=== PATIENT | male | born 1940 | race Caucasian/White ===

== ENCOUNTER → 2019-11-15 | Outpatient (CLI) | payer MEDICARE, OTHER ==
[~2019-11-15] MED LIST: AMLO5 PO; Hydrochloroth12.5 MG PO; INSDET100; METF850 PO; PERI4 PO; POTCHL10ER PO; SIMV40 PO
== END | disposition home or self-care (01) ==
LOC: PLD 07:44 → LAB SHORT 07:44
DX: C44.612 Basal cell carcinoma of skin of right upper limb, including shoulder (principal); C44.611 Basal cell carcinoma of skin of unspecified upper limb, including shoulder; C44.519 Basal cell carcinoma of skin of other part of trunk
CPT/HCPCS: 88305

== ENCOUNTER → 2019-12-08 | Outpatient (CLI) | payer MEDICARE, OTHER | END | disposition home or self-care (01) | LOC: PLD 08:23 → LAB SHORT 08:23 | DX: C44.519 Basal cell carcinoma of skin of other part of trunk (principal) | CPT/HCPCS: 88305 ==

== ENCOUNTER → 2021-06-06 | Outpatient (CLI) | payer MEDICARE, OTHER ==
[~2021-06-06] MED LIST changes: +Lantus100 UNIT/1 SC
== END ==
LOC: LAB SHORT 14:51 → LAB 14:51
DX: D48.5 Neoplasm of uncertain behavior of skin (principal); C44.519 Basal cell carcinoma of skin of other part of trunk
CPT/HCPCS: 88305

== ENCOUNTER → 2021-07-12 | Outpatient (CLI) | payer MEDICARE, OTHER | LOC: LAB 11:27 → LAB SHORT 11:27 | DX: C44.519 Basal cell carcinoma of skin of other part of trunk (principal) | CPT/HCPCS: 88305 ==

== ENCOUNTER → 2021-11-26 | Outpatient (CLI) | payer MEDICARE, BC ==
[2021-11-27 20:36] LABS: Adenovirus F 40/41 Not Detected (NOT DETECT); Astrovirus Not Detected (NOT DETECT); Campylobacter Sp Not Detected (NOT DETECT); Cryptosporidium Not Detected (NOT DETECT); Cyclospora Cayetanensis Not Detected (NOT DETECT); E. Coli O157 Not Detected (NOT DETECT); Entamoeba Histolytica Not Detected (NOT DETECT); Enteroaggregative E. coli-EAEC Not Detected (NOT DETECT); Enteropathogenic E. coli-EPEC Not Detected (NOT DETECT); Enterotoxigenic E. coli-ETEC Not Detected (NOT DETECT); Giardia Lamblia Not Detected (NOT DETECT); Norovirus GI/GII Not Detected (NOT DETECT); Plesiomonas Shigelloides Not Detected (NOT DETECT); Rotavirus A Not Detected (NOT DETECT); Salmonella Sp Not Detected (NOT DETECT); Sapovirus Not Detected (NOT DETECT); Shiga Toxin-prod E. coli-STEC Not Detected (NOT DETECT); Shigella/Enteroin E. coli-EIEC Not Detected (NOT DETECT); Vibrio Cholerae Not Detected (NOT DETECT); Vibrio Sp Not Detected (NOT DETECT); Yersinia Enterocolitica Not Detected (NOT DETECT)
== END | disposition home or self-care (01) ==
LOC: LAB SHORT 08:30 → LAB 08:30
PROVIDERS: Family Medicine
DX: R19.7 Diarrhea, unspecified (principal)
CPT/HCPCS: 0097U

== ENCOUNTER → 2022-03-08 | Outpatient (CLI) | payer MEDICARE, BC ==
[2022-03-08 09:27] LABS: BASOPHILS ABSOLUTE AUTO 0.02 K/mm3 (0.00-0.23); BASOPHILS PERCENT AUTO 0 % (0-2); EOSINOPHILS PERCENT AUTO 0 % (0-6); Hematocrit 38.5 % (37.0-53.0); Hemoglobin 13.1 g/dL (13.5-17.5); IMMATURE GRAN ABSOLUTE AUTO 0.03 K/mm3 (0.00-0.10); IMMATURE GRAN PERCENT AUTO 0 % (0-1); LYMPHOCYTES ABSOLUTE AUTO 0.48 K/mm3 (0.84-5.20); LYMPHOCYTES PERCENT AUTO 5 % (21-46); MONOCYTES ABSOLUTE AUTO 1.28 K/mm3 (0.16-1.47); MONOCYTES PERCENT AUTO 13 % (4-13); Mean Corpuscular HGB 30.5 pg (26.0-34.0); Mean Corpuscular Volume 90 fL (80-100); Mean Platelet Volume 10.3 fL (9.1-12.4); NEUTROPHILS ABSOLUTE AUTO 8.43 K/mm3 (1.96-9.15); NEUTROPHILS PERCENT AUTO 82 % (41-73); Platelet Count 140 K/mm3 (150-400); RDW Coefficient Variation 13.6 % (11.7-14.2); RDW Standard Deviation 44.5 fL (35.1-46.3); White Blood Cell Count 10.24 K/mm3 (4.00-11.30)
[2022-03-08 09:38] LABS: Albumin, Blood 3.4 g/dL (3.4-5.0); Bilirubin, Total 0.9 mg/dL (0.1-1.0); Bun/Creatinine Ratio 16.8 (12.0-20.0); Calcium, Blood 9.1 mg/dL (8.5-10.1); Creatinine, Blood 1.19 mg/dL (0.60-1.20); Globulin, Blood 3.5 g/dL (2.2-4.0); Potassium, Blood 3.4 mmol/L (3.5-5.5); Total Protein, Blood 6.9 g/dL (6.4-8.2)
== END | disposition home or self-care (01) ==
LOC: LAB 09:22 → LAB SHORT 09:22
PROVIDERS: Physician Assistant
DX: R06.00 Dyspnea, unspecified (principal)
CPT/HCPCS: 80053; 85025

== ENCOUNTER → 2022-10-07 | Outpatient (CLI) | payer MEDICARE, BC | END | disposition home or self-care (01) | LOC: LAB SHORT 12:04 → LAB 12:04 | DX: C44.612 Basal cell carcinoma of skin of right upper limb, including shoulder (principal); C44.611 Basal cell carcinoma of skin of unspecified upper limb, including shoulder; C44.519 Basal cell carcinoma of skin of other part of trunk | CPT/HCPCS: 88305 ==

== ENCOUNTER → 2022-10-29 | Outpatient (CLI) | payer MEDICARE, BC | END | disposition home or self-care (01) | LOC: LAB SHORT 14:24 → PLD 14:24 | DX: C44.519 Basal cell carcinoma of skin of other part of trunk (principal); D22.5 Melanocytic nevi of trunk; L91.0 Hypertrophic scar | CPT/HCPCS: 88305 ==

== ENCOUNTER → 2022-12-23 | Outpatient (CLI) | payer MEDICARE, BC | END | disposition home or self-care (01) | LOC: PLD 14:24 → LAB SHORT 14:24 | DX: C44.612 Basal cell carcinoma of skin of right upper limb, including shoulder (principal); L91.0 Hypertrophic scar; D22.61 Melanocytic nevi of right upper limb, including shoulder | CPT/HCPCS: 88305 ==

== ENCOUNTER 2022-12-28 05:24 | Emergency (ER) | payer MEDICARE, BC ==
[~2022-12-28] VITALS: Ht 185.4 cm; Wt 90.7 kg
== END 2022-12-28 08:29 | disposition home or self-care (01) ==
LOC: ER 05:24
DX: S01.01XA Laceration without foreign body of scalp, initial encounter (principal); W06.XXXA Fall from bed, initial encounter; W22.8XXA Striking against or struck by other objects, initial encounter; E11.9 Type 2 diabetes mellitus without complications; I10 Essential (primary) hypertension; I25.10 Atherosclerotic heart disease of native coronary artery without angina pectoris; Z79.899 Other long term (current) drug therapy; Z79.4 Long term (current) use of insulin
CPT/HCPCS: 70450